=== PATIENT | male | born 1955 | race Caucasian/White ===

== ENCOUNTER 2018-01-10 06:13 | Day surgery (SDC) | payer OTHER ==
[2018-01-10] MEDS ORDERED: Ringers Lactate 1,000 ML IV ONE ×2 (06:20→08:27)
[2018-01-10] MEDS ORDERED: CEFAZOLIN/SWI 1gm 1 GM/10 ML SYR ONE (06:20)
[2018-01-10] MEDS ORDERED: BUPIVACA 0.25%/EPI 0.0005% MDV 50 ML VIAL ONE (07:11)
[2018-01-10] MEDS ORDERED: PROPOFOL 200 MG/20 ML VIAL IV ONE (07:16)
[2018-01-10] MEDS ORDERED: MIDAZOLAM HCL 2 MG/2 ML INJ ONE (07:16)
[2018-01-10] MEDS ORDERED: FENTANYL CITR 250 MCG/5 ML ONE (07:17)
[2018-01-10] MEDS ORDERED: GLYCOPYRROLATE 0.2 MG/ML SYR ONE ×2 (07:17)
[2018-01-10] MEDS ORDERED: ROCURONIUM 50 MG/5 ML VIAL IV ONE (07:29)
[2018-01-10] MEDS ORDERED: ONDANSETRON 4 MG/2 ML VIAL ONE ×2 (07:29→10:24)
--- NOTE | 2018-01-10 09:05 | P.OP ---
Preoperative diagnosis: LEFT inguinal hernia Postoperative diagnosis: LEFT inguinal hernia Primary procedure: Open LEFT inguinal hernia repair with plug and patch mesh Anesthesia: GETA + Local Estimated blood loss: < 10cc Specimen: cord lipoma Findings: indirect inguinal hernia Complications: None Implants: Bard Marlex Plug and Patch mesh Transferred to: Recovery Room Condition: Good
[2018-01-10] MEDS ORDERED: MEPERIDINE HCL 50 MG/ML AMP ONE (10:18)
[2018-01-10] MEDS ORDERED: HYDROCODONE/APAP 5/325 MG TAB ONE (10:51)
--- NOTE | 2018-01-10 20:47 | OP ---
Date of Procedure: 01/10/2018 Surgeon: Mickey Xiao MD, Preoperative Diagnosis: Left inguinal hernia. Postoperative Diagnosis: Left inguinal hernia. Procedure Performed: An open left inguinal hernia repair with plug and patch mesh system. Anesthesia: General tracheal local with 0.25% Marcaine with epinephrine. Estimated Blood Loss: Less than 10 cc. Specimen: Cord lipoma. Findings: Indirect inguinal hernia. Complications: None. Implants: Bard Marlex plug and patch, medium mesh. Disposition: Transferred to recovery room in good condition. Procedure In Detail: After informed consent obtained, the patient was brought to the operating room, prepped and draped in the usual sterile fashion. After adequate anesthesia was achieved, a left ing uinal incision was made through subcutaneous tissues with a 15-blade scalpel, after appropriately ane sthetizing the skin. Dissection was continued down through Camper fat and Karen fascia to expose th e external oblique aponeurosis, which was thin, friable, and attenuated at the time. I then opened t his up using Metzenbaum scissors protecting the ilioinguinal and iliohypogastric nerve in its entiret y. I then fully opened the incision and dissect down the spermatic cord structures. The spermatic c ord structures were encircled with a Maximiliano drain at this time and all alveolar tissue was cleared f rom the spermatic cord structures. The cord lipoma was appreciated. This was dissected free from th e spermatic cord structures, while protecting them throughout. The specimen was then sent off for pa thologic examination. The hernia was found to be in an indirect position. This was circumferentiall y dissected and preperitoneal tissue was returned to the normal anatomic space. After opening the he rnia defect, a Bard Marlex medium plug was then brought into the field, hydrated appropriately, and s ecured using 4 circumferential 0 Prolene sutures to secure the mesh into the preperitoneal position. After this was placed in the preperitoneal position, it was digitized to unfurl it completely and la y in a flat position. It was then secured using the above-stated 4 sutures with good approximation o f tissues. The hernia patch system was then sized appropriately, brought into the field and then froylan carson on the spermatic cord structures to reconstitute the deep inguinal ring. After this was performe d, the mesh was secured to the fascia over the pubic tubercle using a 0 PDS in an interrupted fashion and both medial and lateral shelving edges were secured using the same set 0 PDS suture. The area w as copiously irrigated multiple times until completely clear and the areas were inspected. Proper he mostasis was achieved at this time. The Camper fat, Karen fascia, and external oblique aponeurosis were closed en bloc at this time using a running 3-0 Vicryl with good approximation of tissues. The skin was then closed using a 4-0 Monocryl in running fashion and then Dermabond placed over the top. The patient tolerated the procedure well without evidence of complication and transferred to PACU in good condition. All counts were correct at the end of the case. MARIPOSA/DELMI Voice ID: [id number] Report ID: [id number]
== END 2018-01-10 11:45 | disposition home or self-care (01) ==
LOC: OR 06:13
PROVIDERS: ATTEND Surgery
PROC: 0YU60JZ Supplement Left Inguinal Region with Synthetic Substitute, Open Approach (ICD-10-PCS; principal; 2018-01-10 07:30)
DX: K40.90 Unilateral inguinal hernia, without obstruction or gangrene, not specified as recurrent (principal)
CPT/HCPCS: 88302; J0690; J2175; J2250; J2405

== ENCOUNTER 2018-06-10 01:31 | Inpatient (IN) | payer OTHER ==
[2018-06-10 02:08] LABS: Absolute Lymphocytes (CBC) 2.1 K/uL (0.7-4.9); Absolute Monocytes 0.5 K/uL (0.1-1.3); Basophils % 0.4 % (0-1.3); Eosinophils % 1.8 % (0-4.4); Hematocrit 44.3 % (39.6-49.0); Lymphocytes % 31.4 % (15.3-44.8); MPV 8.4 fL (7.6-11.3); Monocytes % 7.8 % (3.3-12.3); RBC Red Blood Cell Count 5.02 M/uL (4.33-5.43)
[2018-06-10 02:09] LABS: Protime INR 0.92
[2018-06-10 02:21] LABS: Albumin 3.8 g/dL (3.4-5.0); Bilirubin Direct 0.2 mg/dL (0-0.2); Bilirubin Total 0.5 mg/dL (0.2-1.0); Magnesium 2.3 mg/dL (1.8-2.4); Potassium 3.9 mmol/L (3.5-5.1); Protein, Total 7.9 g/dL (6.4-8.2); Troponin (Emerg Dept Use Only) 0.06 ng/mL (0.0-0.045)
[2018-06-10] MEDS ORDERED: NITROGLYCERIN 0.4 MG/TAB SL ONE (02:30)
--- NOTE | 2018-06-10 02:51 | ER ---
Nurse's Notes [facility] Name: Chester Carvalho Age: 63 yrs Sex: Male : 1955 Arrival Date: 06/10/2018 Time: 01:31 Bed 16 Private MD: Diagnosis: Non-ST elevation (NSTEMI) myocardial infarction Presentation: 06/10 01:40 Presenting complaint: Patient states: central chest pain started at 2130, "i thought it ak1 was indigestion" pt stated pain and sweating woke him at 0030. pt took 4 aspirin 81mg at 0100. pt denies N/V, denies SOB. Transition of care: patient was not received from another setting of care. Onset of symptoms was June 09, 2018. Risk Assessment: Do you want to hurt yourself or someone else? Patient reports no desire to harm self or others. Care prior to arrival: None. 01:40 Method Of Arrival: Wheelchair ak1 01:40 Acuity: BETHANY 3 ak1 01:41 Initial Sepsis Screen: Does the patient meet any 2 criteria? No. Patient's initial cc3 sepsis screen is negative. Does the patient have a suspected source of infection? No. Patient's initial sepsis screen is negative. 01:44 Note pt denies pain radiates, pt c/o bilateral arms being sore and aching. ak1 Triage Assessment: 01:42 General: Appears in no apparent distress. Behavior is calm, cooperative. ak1 Historical: - Allergies: 01:42 No Known Allergies; ak1 - Home Meds: 01:42 None [Active]; ak1 - PMHx: 01:42 None; ak1 - PSHx: 01:42 Hernia repair; ak1 - Immunization history:: Adult Immunizations unknown. - Social history:: Smoking status: Patient/guardian denies using tobacco. - Ebola Screening: : No symptoms or risks identified at this time. Screenin:41 Abuse screen: Denies threats or abuse. Denies injuries from another. Nutritional cc3 screening: No deficits noted. Tuberculosis screening: No symptoms or risk factors identified. Fall Risk Ambulatory Aid- None/Bed Rest/Nurse Assist (0 pts). Gait- Normal/Bed Rest/Wheelchair (0 pts) Mental Status- Oriented to own ability (0 pts). Assessment: 01:41 General: Appears in no apparent distress. comfortable, Behavior is calm, cooperative, cc3 appropriate for age. Pain: Complains of pain in chest Pain does not radiate. Pain began 4 hours ago. Neuro: Level of Consciousness is awake, alert, obeys commands, Oriented to person, place, time, situation, Appropriate for age. Cardiovascular: Reports chest pain, since 4 hours ago. Respiratory: Airway is patent Respiratory effort is even, unlabored, Respiratory pattern is regular, symmetrical. GI: Abdomen is round non-distended. : No signs and/or symptoms were reported regarding the genitourinary system. EENT: No signs and/or symptoms were reported regarding the EENT system. Derm: No signs and/or symptoms reported regarding the dermatologic system. Musculoskeletal: Circulation, motion, and sensation intact. Range of motion: intact in all extremities. 02:20 Reassessment: Patient and/or family updated on plan of care and expected duration. Pain cc3 level reassessed. Patient is alert, oriented x 3, equal unlabored respirations, skin warm/dry/pink. Patient complained of chest pain, headache and SOB, informed QUALITY REVIEW TRAINER Vishnu. 03:17 Reassessment: Patient appears in no apparent distress at this time. Patient and/or cc3 family updated on plan of care and expected duration. Pain level reassessed. Patient is alert, oriented x 3, equal unlabored respirations, skin warm/dry/pink. Patient denies pain at this time. Patient states feeling better. Patient states symptoms have improved. 03:35 Reassessment: Patient appears in no apparent distress at this time. Patient and/or cc3 family updated on plan of care and expected duration. Pain level reassessed. Patient is alert, oriented x 3, equal unlabored respirations, skin warm/dry/pink. Patient for admission, room available at 415, report called to MEETA Coppola for continuity of care. 03:50 Reassessment: Patient left ER for admission vitally stable by wheelchair escorted by ED cc3 chino Marcus and the patient's daughter. Vital Signs: 01:42 BP 173 / 101; Pulse 60; Resp 18; Temp 97.5(O); Pulse Ox 100% on R/A; Weight 83.91 kg ak1 (R); Height 5 ft. 8 in. (172.72 cm) (R); Pain 6/10; 02:00 BP 166 / 100; Pulse 82; Resp 16; Pulse Ox 100% on R/A; cc3 02:30 BP 148 / 100; Pulse 74; Resp 16 S; Pulse Ox 100% on 2 lpm NC; Pain 4/10; cc3 02:50 BP 148 / 91; Pulse 74; Resp 17 S; Pulse Ox 100% on 2 lpm NC; Pain 3/10; cc3 03:07 BP 139 / 84; Pulse 63; Resp 18 S; Pulse Ox 100% on 2 lpm NC; Pain 0/10; cc3 03:45 BP 147 / 85; Pulse 60; Resp 18 S; Pulse Ox 99% on 2 lpm NC; cc3 01:42 Body Mass Index 28.13 (83.91 kg, 172.72 cm) ak1 ED Course: 01:31 Patient arrived in ED. ds1 01:41 Alexa Fuentes is Primary Nurse. cc3 01:41 Triage completed. ak1 01:41 Patient has correct armband on for positive identification. Bed in low position. Call cc3 light in reach. Side rails up X 1. bus driver/monitor on. Pulse ox on. NIBP on. 01:41 Patient maintains SpO2 saturation greater than 95% on room air. cc3 01:42 Vishnu Wharton NP is PHCP. pm1 01:42 Marcus Beckett MD is Attending Physician. pm1 01:42 Arm band placed on Patient placed in an exam room, on a stretcher, on pulse oximetry, ak1 Patient notified of wait time. EKG completed in triage. Results shown to MD. 01:50 Inserted saline lock: 20 gauge in left antecubital area, using aseptic technique. Blood cc3 collected. inserted by technology director Angeline. 02:04 X-ray completed. Portable x-ray completed in exam room. Patient tolerated procedure jb2 well. 02:05 XRAY Chest (1 view) In Process Unspecified. EDMS 02:50 Zachary Barnes MD is Hospitalizing Provider. pm1 03:35 No provider procedures requiring assistance completed. Patient admitted, IV remains in cc3 place. Administered Medications: 02:22 Drug: Nitroglycerin 0.4 mg Route: Sublingual; cc3 02:29 Drug: Nitroglycerin 0.4 mg Route: Sublingual; cc3 02:40 Drug: Nitroglycerin 0.4 mg Route: Sublingual; cc3 02:40 Follow up: Response: No adverse reaction; Pain is decreased cc3 02:45 Drug: Metoprolol 25 mg Route: PO; cc3 03:14 Follow up: Response: No adverse reaction cc3 02:46 Drug: Lovenox 1 mg/kg Route: Sub-Q; Site: left lower abdomen; cc3 03:14 Follow up: Response: No adverse reaction cc3 03:00 Drug: morphine 4 mg Route: IVP; Site: left antecubital; cc3 03:14 Follow up: Response: No adverse reaction; Pain is decreased cc3 03:03 Drug: Zofran 4 mg Route: IVP; Site: left antecubital; cc3 03:13 Follow up: Response: No adverse reaction; Nausea is decreased cc3 03:05 Drug: Metoprolol 5 mg Route: IVP; Site: left antecubital; cc3 03:13 Follow up: Response: No adverse reaction; Blood pressure is lowered cc3 Outcome: 02:51 Decision to Hospitalize by Provider. pm1 03:35 Admitted to Tele accompanied by tech, family with patient, via wheelchair, room 415, cc3 with oxygen, with chart, Report called to MEETA Coppola 03:35 Condition: stable 03:35 Instructed on the need for admit, Demonstrated understanding of instructions. 03:55 Patient left the ED. cc3 Signatures: Dispatcher [employer] EDMS Germán Cohen Demi ds1 Amie Dent RN RN ak1 Vishnu Wharton, QUALITY REVIEW TRAINER QUALITY REVIEW TRAINER pm1 Alexa Fuentes cc3 Corrections: (The following items were deleted from the chart) 03:12 02:30 BP 148 / 100; Pulse 74bpm; Resp 16bpm; Spontaneous; Pulse Ox 100% 2 lpm Nasal cc3 Cannula; cc3 03:12 02:50 BP 148 / 91; Pulse 74bpm; Resp 17bpm; Spontaneous; Pulse Ox 100% 2 lpm Nasal cc3 Cannula; cc3 03:13 03:07 BP 139 / 84; Pulse 63bpm; Resp 18bpm; Spontaneous; Pulse Ox 100% 2 lpm Nasal cc3 Cannula; cc3 03:18 03:17 Reassessment: Patient appears in no apparent distress at this time. Patient cc3 and/or family updated on plan of care and expected duration. Pain level reassessed. Patient is alert, oriented x 3, equal unlabored respirations, skin warm/dry/pink. cc3 04:18 02:15 Reassessment: Patient and/or family updated on plan of care and expected cc3 duration. Pain level reassessed. Patient is alert, oriented x 3, equal unlabored respirations, skin warm/dry/pink. Patient complained of chest pain, headache and SOB, informed QUALITY REVIEW TRAINER Vishnu. cc3 04:19 03:50 Reassessment: Patient left ER for admission vitally stable by wheelchair escorted cc3 by technology directorchino Marcus. cc3
--- NOTE | 2018-06-10 02:52 | EDPHYS ---
Physician Documentation [facility] Name: Chester Carvalho Age: 63 yrs Sex: Male : 1955 Arrival Date: 06/10/2018 Time: 01:31 Bed 16 Private MD: ED Physician Marcus Beckett HPI: 06/10 02:00 This 63 yrs old Male presents to ER via Wheelchair with complaints of Chest pm1 Pain. 02:00 The patient or guardian reports chest pain that is located primarily in the mid-sternal pm1 area. Onset: last night, at 21:30. The pain does not radiate. Associated signs and symptoms: Pertinent positives: diaphoresis, Pertinent negatives: abdominal pain, cough, nausea, shortness of breath, vomiting. The chest pain is described as a pressure. Duration: The patient or guardian reports a single episode, that is still ongoing, but improving. Modifying factors: The symptoms are alleviated by nothing. the symptoms are aggravated by nothing. Severity of pain: in the emergency department the pain has improved is a 5 / 10. The patient has not experienced similar symptoms in the past. The patient has not recently seen a physician. Took 324 baby aspirin prior to arrival. Historical: - Allergies: 01:42 No Known Allergies; ak1 - Home Meds: 01:42 None [Active]; ak1 - PMHx: 01:42 None; ak1 - PSHx: 01:42 Hernia repair; ak1 - Immunization history:: Adult Immunizations unknown. - Social history:: Smoking status: Patient/guardian denies using tobacco. - Ebola Screening: : No symptoms or risks identified at this time. ROS: 02:00 Constitutional: Negative for fever, chills, and weight loss, Eyes: Negative for injury, pm1 pain, redness, and discharge, ENT: Negative for injury, pain, and discharge, Neck: Negative for injury, pain, and swelling, Respiratory: Negative for shortness of breath, cough, wheezing, and pleuritic chest pain, Abdomen/GI: Negative for abdominal pain, nausea, vomiting, diarrhea, and constipation, Back: Negative for injury and pain, : Negative for injury, bleeding, discharge, and swelling, MS/Extremity: Negative for injury and deformity, Skin: Negative for injury, rash, and discoloration. 02:00 Cardiovascular: Positive for chest pain, Negative for orthopnea, palpitations. 02:00 Neuro: Positive for headache, Negative for dizziness, numbness, tingling, weakness. Exam: 02:00 Constitutional: This is a well developed, well nourished patient who is awake, alert, pm1 and in no acute distress. Head/Face: Normocephalic, atraumatic. Eyes: Pupils equal round and reactive to light, extra-ocular motions intact. Lids and lashes normal. Conjunctiva and sclera are non-icteric and not injected. Cornea within normal limits. Periorbital areas with no swelling, redness, or edema. ENT: Nares patent. No nasal discharge, no septal abnormalities noted. Tympanic membranes are normal and external auditory canals are clear. Oropharynx with no redness, swelling, or masses, exudates, or evidence of obstruction, uvula midline. Mucous membranes moist. Neck: Trachea midline, no thyromegaly or masses palpated, and no cervical lymphadenopathy. Supple, full range of motion without nuchal rigidity, or vertebral point tenderness. No Meningismus. Chest/axilla: Normal chest wall appearance and motion. Nontender with no deformity. No lesions are appreciated. 02:00 Respiratory: Lungs have equal breath sounds bilaterally, clear to auscultation and percussion. No rales, rhonchi or wheezes noted. No increased work of breathing, no retractions or nasal flaring. Abdomen/GI: Soft, non-tender, with normal bowel sounds. No distension or tympany. No guarding or rebound. No evidence of tenderness throughout. Back: No spinal tenderness. No costovertebral tenderness. Full range of motion. Skin: Warm, dry with normal turgor. Normal color with no rashes, no lesions, and no evidence of cellulitis. MS/ Extremity: Pulses equal, no cyanosis. Neurovascular intact. Full, normal range of motion. 02:00 Cardiovascular: Rate: normal, actual rate is 61 bpm, Rhythm: Pulses: no pulse deficits are appreciated, Heart sounds: normal, Edema: is not appreciated. 02:00 Neuro: Orientation: is normal, Motor: is normal, moves all fours, Gait: is steady, at a normal pace, without difficulty. Vital Signs: 01:42 BP 173 / 101; Pulse 60; Resp 18; Temp 97.5(O); Pulse Ox 100% on R/A; Weight 83.91 kg ak1 (R); Height 5 ft. 8 in. (172.72 cm) (R); Pain 6/10; 02:00 BP 166 / 100; Pulse 82; Resp 16; Pulse Ox 100% on R/A; cc3 02:30 BP 148 / 100; Pulse 74; Resp 16 S; Pulse Ox 100% on 2 lpm NC; Pain 4/10; cc3 02:50 BP 148 / 91; Pulse 74; Resp 17 S; Pulse Ox 100% on 2 lpm NC; Pain 3/10; cc3 03:07 BP 139 / 84; Pulse 63; Resp 18 S; Pulse Ox 100% on 2 lpm NC; Pain 0/10; cc3 03:45 BP 147 / 85; Pulse 60; Resp 18 S; Pulse Ox 99% on 2 lpm NC; cc3 01:42 Body Mass Index 28.13 (83.91 kg, 172.72 cm) ak1 MDM: 01:42 Patient medically screened. pm1 02:34 Data reviewed: vital signs. Data interpreted: Pulse oximetry: on room air is 100 %. pm1 Interpretation: normal. 02:42 The patient was not given aspirin in the Emergency Department. Patient reports taking pm1 aspirin within the past 24 hours. 02:42 Counseling: I had a detailed discussion with the patient and/or guardian regarding: the pm1 historical points, exam findings, and any diagnostic results supporting the discharge/admit diagnosis, lab results, radiology results, the need for further work-up and treatment in the hospital. 02:47 ED course: Pain reduced to 2/10 with 3 doses of nitro. Will give patient additional pm1 pain medication, morphine. 03:11 Physician consultation: Zachary Barnes MD was called at 03:12, was contacted at 03:12, pm1 regarding admission, patient's condition, and will see patient. 06/10 01:42 Order name: Basic Metabolic Panel; Complete Time: 02: pm06/10 01:42 Order name: CBC with Diff; Complete Time: 02: pm06/10 01:42 Order name: LFT's; Complete Time: 02:23 pm1 06/10 01:42 Order name: Magnesium; Complete Time: 02: pm06/10 01:42 Order name: NT PRO-BNP; Complete Time: 02:23 pm06/10 01:42 Order name: PT-INR; Complete Time: 02:23 pm06/10 01:42 Order name: Troponin (emerg Dept Use Only); Complete Time: 02:23 pm06/10 03:16 Order name: Basic Metabolic Panel [facility] 06/10 03:16 Order name: Basic Metabolic Panel [facility] 06/10 03:16 Order name: CBC with Automated Diff [facility] 06/10 03:16 Order name: CBC with Automated Diff [facility] 06/10 03:16 Order name: Lipid Profile [facility] 06/10 03:16 Order name: Lipid Profile [facility] 06/10 03:16 Order name: Troponin I [facility] 06/10 01:42 Order name: XRAY Chest (1 view) pm1 06/10 01:42 Order name: EKG; Complete Time: 01:44 pm06/10 01:42 Order name: Cardiac monitoring; Complete Time: 01:43 pm06/10 03:16 Order name: CONS Physician Consult [facility] 06/10 03:16 Order name: Heart Healthy [facility] 06/10 03:16 Order name: Echo with Doppler [facility] 06/10 03:16 Order name: EKG Electrocardiogram [facility] 06/10 03:16 Order name: EKG Electrocardiogram [facility] 06/10 03:16 Order name: Troponin I [facility] 06/10 03:16 Order name: Troponin I [facility] 06/10 01:42 Order name: EKG - Nurse/Tech; Complete Time: 01:43 pm06/10 01:42 Order name: IV Saline Lock; Complete Time: 01:57 pm06/10 01:42 Order name: Labs collected and sent; Complete Time: 01:57 pm06/10 01:42 Order name: O2 Per Protocol; Complete Time: 01:43 pm06/10 01:42 Order name: O2 Sat Monitoring; Complete Time: 01:44 pm1 Administered Medications: 02:22 Drug: Nitroglycerin 0.4 mg Route: Sublingual; cc3 02:29 Drug: Nitroglycerin 0.4 mg Route: Sublingual; cc3 02:40 Drug: Nitroglycerin 0.4 mg Route: Sublingual; cc3 02:40 Follow up: Response: No adverse reaction; Pain is decreased cc3 02:45 Drug: Metoprolol 25 mg Route: PO; cc3 03:14 Follow up: Response: No adverse reaction cc3 02:46 Drug: Lovenox 1 mg/kg Route: Sub-Q; Site: left lower abdomen; cc3 03:14 Follow up: Response: No adverse reaction cc3 03:00 Drug: morphine 4 mg Route: IVP; Site: left antecubital; cc3 03:14 Follow up: Response: No adverse reaction; Pain is decreased cc3 03:03 Drug: Zofran 4 mg Route: IVP; Site: left antecubital; cc3 03:13 Follow up: Response: No adverse reaction; Nausea is decreased cc3 03:05 Drug: Metoprolol 5 mg Route: IVP; Site: left antecubital; cc3 03:13 Follow up: Response: No adverse reaction; Blood pressure is lowered cc3 Disposition: 05:43 Co-signature as Attending Physician, Marcus Beckett MD I agree with the assessment and tw4 plan of care. Disposition: 06/10/18 02:51 Hospitalization ordered by Zachary Barnes for Inpatient Admission. Preliminary diagnosis is Non-ST elevation (NSTEMI) myocardial infarction. - Bed requested for Telemetry/MedSurg (Inpatient). - Status is Inpatient Admission. cc3 - Condition is Stable. - Problem is new. - Symptoms have improved. UTI on Admission? No Signatures: Dispatcher [employer] EDMS Amie Dent RN RN ak1 Татьяна Morris RN RN cg Vishnu Wharton, SAWDUST MACHINE OPERATOR SAWDUST MACHINE OPERATOR pm1 Marcus Beckett MD MD tw4 Alexa Fuentes cc3 Corrections: (The following items were deleted from the chart) 03:18 02:51 Hospitalization Ordered by Zachary Barnes MD for Inpatient Admission. Preliminary cg diagnosis is Non-ST elevation (NSTEMI) myocardial infarction. Bed requested for Telemetry/MedSurg (Inpatient). Status is Inpatient Admission. Condition is Stable. Problem is new. Symptoms have improved. UTI on Admission? No. pm1 03:55 03:18 06/10/2018 02:51 Hospitalization Ordered by Zachary Barnes MD for Inpatient cc3 Admission. Preliminary diagnosis is Non-ST elevation (NSTEMI) myocardial infarction. Bed requested for Telemetry/MedSurg (Inpatient). Status is Inpatient Admission. Condition is Stable. Problem is new. Symptoms have improved. UTI on Admission? No. cg
[2018-06-10] MEDS ORDERED: METOPROLOL TAR 25 MG TAB ONE (02:53)
[2018-06-10] MEDS ORDERED: ENOXAPARIN 80 MG/0.8 ML SQ ONE (02:53)
[2018-06-10] MEDS ORDERED: MORPHINE 4 MG/ML SYR ONE (03:05)
[2018-06-10] MEDS ORDERED: ONDANSETRON 4 MG/2 ML VIAL ONE (03:05)
[2018-06-10] MEDS ORDERED: METOPROLOL TARTRATE 5 MG/5 ML INJ IV ONE (03:05)
[2018-06-10] MEDS ORDERED: ALPRAZOLAM 0.25 MG TABLET PO PRN (03:10)
[2018-06-10] MEDS ORDERED: MORPHINE 4 MG/ML SYR IV PRN (03:10)
[2018-06-10] MEDS: NITROGLYCERIN 1 GM PKT TD SCH ×2 (06:43→17:24)
--- NOTE | 2018-06-10 07:28 | P.HP ---
Certification for Inpatient Patient admitted to: Inpatient With expected LOS: >2 Midnights Patient will require the following post-hospital care: None Practitioner: I am a practitioner with admitting privileges, knowledge of patient current condition, hospital course, and medical plan of care. Services: Services provided to patient in accordance with Admission requirements found in Title 42 Section 412.3 of the Code of Federal Regulations Patient History Date of Service: 06/10/18 Reason for admission: Chest pain rule out acute coronary syndrome History of Present Illness: Patient is a 63-year-old gentleman who comes into the hospital with chest pain. Pain is been in the sternal region. There has been some radiation to the left side of his shoulder. He has been a little more short of breath normal. He states he has had a lot of his stress with his job.He came into the ER for further evaluation. In the emergency room his troponins were slightly elevated. He was admitted to the hospital for further workup. He does have a family history in his father side of having heart disease. However , he states his father was a smoker. He does not have any risk factors and he does not smoke. However his pain typical of cardiac disease. He will be admitted for further evaluation. Allergies No Known Allergies Allergy (Verified 01/09/18 11:28) Home Medications: NK [No Home Meds] 01/09/18 - Past Medical/Surgical History Has patient received pneumonia vaccine in the past: No Diabetic: No Past Medical History: Patient denies medical history -: Hernia repair - 2018 -: Skin CA removal - arms, back - Family History Father Family History: Reviewed- Non-Contributory - Social History Smoking Status: Never smoker Alcohol use: No CD- Drugs: No Caffeine use: Yes Place of Residence: Home Review of Systems 10-point ROS is otherwise unremarkable Physical Examination - Vital Signs Temperature: 97.5 F Blood Pressure: 139/84 Pulse: 63 Respirations: 18 Pulse Ox (%): 98 - Physical Exam General: Alert, In no apparent distress, Oriented x3 HEENT: Atraumatic, PERRLA, Mucous membr. moist/pink, EOMI, Sclerae nonicteric Neck: Supple, 2+ carotid pulse no bruit, No LAD, Without JVD or thyroid abnormality Respiratory: Clear to auscultation bilaterally, Normal air movement Cardiovascular: Regular rate/rhythm, Normal S1 S2, No murmurs Gastrointestinal: Normal bowel sounds, Soft and benign, Non-distended, No tenderness Musculoskeletal: No clubbing, No swelling, No tenderness Integumentary: No rashes Neurological: Normal gait, Normal speech, Normal strength at 5/5 x4 extr, Normal tone, Sensation intact, Normal affect Lymphatics: No axilla or inguinal lymphadenopathy - Studies Laboratory Data (last 24 hrs) 06/10/18 01:55: PT 10.8, INR 0.92 06/10/18 01:55: WBC 6.8, Hgb 15.3, Hct 44.3, Plt Count 206 06/10/18 01:55: Sodium 141, Potassium 3.9, BUN 9, Creatinine 1.14, Glucose 142 H , Magnesium 2.3, Total Bilirubin 0.5, AST 27, ALT 32, Alkaline Phosphatase 101 Assessment & Plan - Problems (Diagnosis) (1) Chest pain, rule out acute myocardial infarction Current Visit: Yes Status: Acute (2) NSTEMI (non-ST elevated myocardial infarction) Current Visit: Yes Status: Acute - Plan 1. Serial troponins and EKG 2. Cardiology consultation 3. Echocardiogram and further testing as per cardiology evaluation & recommendation 4. Anti-platelet therapy, anti coagulation, beta-rodney, statin, and O2 as needed 5. IV morphine for pain 6. Nitro p.r.n. 7. GI/DVT prophylaxis Discharge Plan: Home Plan to discharge in: Greater than 2 days - Advance Directives Does patient have a Living Will: No Does patient have a Durable POA for Healthcare: Yes - Code Status/Comfort Care Code Status Assessed: Yes Code Status: Full Code Critical Care: No Time Spent Managing PTS Care (In Minutes): 50
--- NOTE | 2018-06-10 08:18 | RAD REPORT ---
EXAM DESCRIPTION: RAD - Chest Single View - 06/10/2018 2:04 am CLINICAL HISTORY: CHEST PAIN Chest pain. COMPARISON: No comparisons FINDINGS: Portable technique limits examination quality. The lungs are grossly clear. The heart is normal in size. No displaced fractures. IMPRESSION: No acute intrathoracic process suspected.
[2018-06-10] MEDS ORDERED: ENOXAPARIN 40 MG/0.4 ML SQ SCH (09:00)
[2018-06-10] MEDS: METOPROLOL TAR 50 MG TAB PO SCH ×2 (09:53→21:23)
[2018-06-10] MEDS: ASPIRIN EC 81 MG TAB PO SCH (09:54)
[2018-06-10] MEDS ORDERED: FENTANYL CITR 100 MCG/2 ML ONE (13:18)
[2018-06-10] MEDS ORDERED: NA CHLORIDE 0.9% 500 ML ONE (13:18)
[2018-06-10] MEDS ORDERED: HEPA 1000U/500MLS 1,000 UNIT/500 ML BAG IV ONE (13:18)
[2018-06-10] MEDS ORDERED: MIDAZOLAM HCL 2 MG/2 ML INJ ONE (13:18)
[2018-06-10] MEDS ORDERED: NA CHLORIDE 0.9% 0 ML ONE (13:52)
[2018-06-10] MEDS ORDERED: ACETAMINOPHEN 325 MG TABLET PO PRN (16:12)
[2018-06-10] MEDS ORDERED: NITROGLYCERIN 0.4 MG/TAB SL PRN (16:12)
[2018-06-10] MEDS ORDERED: NA CHLORIDE 0.9% 1,000 ML IV SCH (17:00)
--- NOTE | 2018-06-10 17:10 | EKG ---
Test Date: 2018-06-10 Test Time: 01:38:25 [employer]ast Worker: NANCI MEASUREMENT RESULTS: Intervals: Rate: 61 IN: 172 QRSD: 102 QT: 420 QTc: 422 Stevenson: P: 17 IN: 172 QRS: 19 T: 45 INTERPRETIVE STATEMENTS: Normal sinus rhythm Nonspecific ST abnormality Abnormal ECG No previous ECG available for comparison Electronically Signed On 06-10-18 17:07:04 BALLASTER by Geoff Dugan
--- NOTE | 2018-06-10 17:46 | ECHO ---
HEIGHT: 5 ft 8 in WEIGHT: 184 lb 0 oz DATE OF STUDY: 06/10/[address]: Zachary Barnes MD 2-DIMENSIONAL: YES M.MODE: YES DOPPLER: YES COLOR FLOW: YES TDS: NO PORTABLE: NO DEFINITY: NO BUBBLE STUDY: NO DIAGNOSIS: CHEST PAIN. RULE OUT ACUTE CORONARY SYNDROME CARDIAC HISTORY: CATHERIZATION: NO SURGERY: NO PROSTHETIC VALVE: NO PACEMAKER: NO MEASUREMENTS (cm) DIASTOLIC (NORMALS) SYSTOLIC (NORMALS) IVSd 1.1 (0.6-1.2) LA Diam 3.3 (1.9-4.0) LVEF 53% LVIDd 4.1 (3.5-5.7) LVIDs 3.0 (2.0-3.5) %FS 27% LVPWd 1.0 (0.6-1.2) Ao Diam 3.2 (2.0-3.7) 2 DIMENSIONAL ASSESSMENT: RIGHT ATRIUM: NORMAL LEFT ATRIUM: NORMAL RIGHT VENTRICLE: NORMAL LEFT VENTRICLE: NORMAL TRICUSPID VALVE: NORMAL MITRAL VALVE: NORMAL PULMONIC VALVE: NORMAL AORTIC VALVE: NORMAL PERICARDIAL EFFUSION: NONE AORTIC ROOT: NORMAL LEFT VENTRICULAR WALL MOTION: NORMAL. DOPPLER/COLOR FLOW: MILD TRICUSPID REGURGITATION. COMMENTS: MILD TRICUSPID REGURGITATION. NORMAL WALL MOTION. EJECTION FRACTION 55%. NO EFFUSION. TECHNOLOGIST: CARMEN RODRIGUEZ RDCS
--- NOTE | 2018-06-10 21:10 | CON ---
Date of Consultation: 06/10/2018 Reason For Consultation: [id number] myocardial infarction. History Of Present Illness: Mr. Carvalho is a 63-year-old white male without any significant past card iac history. He has a history of hernia repair recently. He has a family history of congestive hear t failure. He came in with classic symptoms for acute coronary syndrome with substernal chest pressu re with exertion, radiating to the arms, with shortness of breath, diaphoresis. Denied PND, orthopne a, pedal edema, palpitations, or syncope. EKG was nonspecific. Troponin was 2.99. Past Medical History: Includes hernia surgery. Allergies: NONE. Review of Systems: Negative. Social History: Negative. Family History: Positive for CHF. Medications: None. Physical Examination: Vital Signs: Stable. Afebrile. HEENT: Negative. Neck: Supple without any bruit, lymphadenopathy, JVD, or thyromegaly. Chest: Clear to auscultation and percussion. Cardiac: Revealed a regular rhythm and rate. No murmurs, gallops, or rubs. Abdomen: Benign. Extremities: Revealed no clubbing, cyanosis, or edema. Pulses were present in the femoral artery, d orsalis pedis, posterior tibial bilaterally. Neurologic: He was intact. Impression And Plan: New-onset [id number] myocardial infarction in a patient with family histo ry of heart disease. Troponin is 2.99. The symptoms are classic. I recommended a left heart cathet erization to define his coronary anatomy. He agreed to proceed and understands all the risks and the benefits of the procedure. For now, I would put him on statin, beta-blockers, and aspirin. I will hold the Lovenox and hold the Plavix for now. GREGORIO/JLUISL Voice ID: [id number] Report ID: [id number]
[2018-06-10] MEDS: ACETAMINOPHEN 500 MG TAB PO PRN (21:22)
[2018-06-11] MEDS: NITROGLYCERIN 1 GM PKT TD SCH ×4 (00:58→18:18)
--- NOTE | 2018-06-11 01:14 | OP ---
Surgeon: Geoff Dugan MD Farm General Manager: Nico Parada. Procedure: Left heart catheterization with selective coronary arteriogram. Indication: Non-ST elevation myocardial infarction. History: Mr. Carvalho is a 63-year-old male without any significant past medical history who came in w ith classic symptoms of unstable angina and was found to have a troponin of 2.99 consistent with sube ndocardial myocardial infarction. Description Of Procedure: He was brought to the livestock laborer today after signing consent form. He was g iven 2 mg of Versed and 50 of fentanyl for sedation. He was prepped and draped in the routine steril e fashion. He was sedated well. A right common femoral artery access was obtained with a 6-Bulgarian s letty. [employer] was used to close the case. Dimitrios catheter 6-Bulgarian left and right were used to do the diagnostic angiography. His right coronary artery showed mild diffuse plaquing throughout wit hout any focal stenosis. It was right dominant. The left system showed a subtotaled OM with ESTHER-1 flow. He had an ostial LAD, proximal LAD, and mid LAD all in the 70-80% stenosis. He has mild dista l plaquing of the LAD. Complications: None. Blood Loss: 5 cc. Total conscious sedation was 30 minutes. Final Diagnosis: Severe coronary artery disease. Plan: For coronary artery bypass surgery. GREGORIO/DELMI Voice ID: [id number] Report ID: [id number]
[2018-06-11] MEDS: METOPROLOL TAR 50 MG TAB PO SCH ×2 (09:55→21:01)
[2018-06-11] MEDS: ASPIRIN EC 81 MG TAB PO SCH (09:55)
--- NOTE | 2018-06-11 16:03 | P.SSS ---
Patient History Date of Service: 06/11/18 Reason for admission: Chest pain rule out acute coronary syndrome History of Present Illness: See HPI Allergies No Known Allergies Allergy (Verified 01/09/18 11:28) Home Medications: NK [No Home Meds] 01/09/18 - Past Medical/Surgical History Has patient received pneumonia vaccine in the past: No Diabetic: No -: Hernia repair - 2018 -: Skin CA removal - arms, back - Social History Smoking Status: Never smoker Alcohol use: No CD- Drugs: No Caffeine use: Yes Place of Residence: Home Review of Systems 10-point ROS is otherwise unremarkable Physical Examination - Vital Signs Temperature: 99.3 F Blood Pressure: 119/68 Pulse: 66 Respirations: 18 Pulse Ox (%): 96 - Physical Exam General: Alert, In no apparent distress HEENT: Atraumatic, PERRLA, Mucous membr. moist/pink, EOMI, Sclerae nonicteric Neck: Supple, 2+ carotid pulse no bruit, No LAD, Without JVD or thyroid abnormality Respiratory: Clear to auscultation bilaterally, Normal air movement Cardiovascular: Regular rate/rhythm, Normal S1 S2 Gastrointestinal: Normal bowel sounds, No tenderness Musculoskeletal: No tenderness Integumentary: No rashes Neurological: Normal gait, Normal speech, Normal strength at 5/5 x4 extr, Normal tone, Normal affect Lymphatics: No axilla or inguinal lymphadenopathy Treatment Summary: Overall during the hospital stay patient remained stable The patient was initially admitted to the hospital for chest pain was found to have elevated troponin x2. EKG had nonspecific changes as well and was thus admitted to the hospital for non ST elevated CO. Cardiology was consulted who recommended cardiac catheterization. Cardiac catheterization was done which was consistent with 3 vessel disease. At that time patient was referred over to the [facility] for further intervention with coronary artery bypass graft. Patient was accepted at the [facility] and was transferred to the [facility] for further intervention. Patient remained on ACS medication while here in the hospital did not have any adverse event and was transferred to the hospital under stable condition. - Disposition Disposition: ROUTINE DISCHARGE Condition: GOOD Diet: Regular Activity: Ad brayan
--- NOTE | 2018-06-11 20:17 | PN ---
Mr. Carvalho was admitted yesterday for subendocardial HI. Heart catheterization revealed severe coron xochitl artery disease. The plan is for him to go to [facility] for coronary artery bypass surgery. Overni ght, he had no chest pain. Telemetry showed normal sinus rhythm. His right groin was intact without any hematoma or bruising. He had a good dorsalis pedis and posterior tibial pulse on the right leg. He is on beta-blockers, aspirin, Lipitor. We will hold Plavix, hold Lovenox. Hoping, he will be g oing to surgery in the next day or 2. GREGORIO/DELMI Voice ID: [id number] Report ID: [id number]
[2018-06-12] MEDS: NITROGLYCERIN 1 GM PKT TD SCH ×4 (01:05→17:52)
[2018-06-12] MEDS: ASPIRIN EC 81 MG TAB PO SCH (10:03)
[2018-06-12] MEDS: METOPROLOL TAR 50 MG TAB PO SCH ×2 (10:03→20:51)
[2018-06-12] MEDS: ACETAMINOPHEN 500 MG TAB PO PRN (11:17)
--- NOTE | 2018-06-12 15:38 | P.PN ---
Subjective Date of Service: 06/12/18 Chief Complaint: Chest pain rule out acute coronary syndrome Subjective: Tolerating diet, Ambulating, Working w/ PT Review of Systems 10-point ROS is otherwise unremarkable Physical Examination - Vital Signs Temperature: 98.7 F Blood Pressure: 109/67 Pulse: 77 Respirations: 20 Pulse Ox (%): 96 - Physical Exam General: Alert, In no apparent distress HEENT: Atraumatic, PERRLA, EOMI Neck: Supple, JVD not distended Respiratory: Clear to auscultation bilaterally, Normal air movement Cardiovascular: Regular rate/rhythm, Normal S1 S2 Gastrointestinal: Normal bowel sounds, No tenderness Musculoskeletal: No tenderness Integumentary: No rashes Neurological: Normal speech, Normal tone, Normal affect Lymphatics: No axilla or inguinal lymphadenopathy - Studies Medications List Reviewed: Yes Assessment And Plan - Current Problems (Diagnosis) (1) 3-vessel coronary artery disease Current Visit: Yes Status: Acute Plan: S/P Cardiac Cath POD # 2 -Awaiting Bed at [facility] for CT surgery consult with possible CABG. -Pt was initially going to be transferred to [facility] however pt prefers [facility] and [employer] that works at [facility]. -Pt accepted and awaiting bed at this time. (2) NSTEMI (non-ST elevated myocardial infarction) Onset Date: 06/11/18 Current Visit: Yes Status: Acute Discharge Plan: Transfer Plan to discharge in: 48 Hours - Code Status/Comfort Care Code Status Assessed: Yes Critical Care: No
== END 2018-06-12 22:05 | disposition short-term general hospital (02) | DRG 282 ==
LOC: ER 01:31 → OBSVTOIN 03:42 → 4TH 03:42
PROVIDERS: ADMIT Hospitalist; ATTEND Family Medicine
PROC: 4A023N7 Measurement of Cardiac Sampling and Pressure, Left Heart, Percutaneous Approach (ICD-10-PCS; principal; 2018-06-10)
PROC: B2111ZZ Fluoroscopy of Multiple Coronary Arteries using Low Osmolar Contrast (ICD-10-PCS; 2018-06-10)
DX: I21.4 Non-ST elevation (NSTEMI) myocardial infarction (principal); I25.10 Atherosclerotic heart disease of native coronary artery without angina pectoris; Z82.49 Family history of ischemic heart disease and other diseases of the circulatory system; Z85.828 Personal history of other malignant neoplasm of skin
CPT/HCPCS: 36415; 71045; 80048; 80076; 83735; 83880; 84484; 85025; 85610; 93005; 93306; 93454; 96372; 96374; 96375; 99285; C1893; J0583; J1650; J2250; J2405; J3010